=== PATIENT | male | born 1960 | race Caucasian/White ===

== ENCOUNTER 2018-11-15 22:51 | Emergency (ER) | payer MEDICARE, MEDICAID, SELFPAY ==
[2018-11-15 22:58] VITALS: BP 156/84; PULSE 88; RESP 18; TEMP 36.5; O2SAT 99
--- NOTE | 2018-11-15 22:59 | W.ED.GENAD ---
Discharge Plan Disposition Patient Disposition: HOME Condition: Good Discharge Details Chief Complaint: Allergic Clinical Impression: Angioedema of lips Primary Care Provider: Oh Sher ED Provider: Slade Spears [place] Meds and New Rx's Prescriptions: New prednisone 20 mg tablet 40 mg PO DAILY Qty: 8 RF: 0 diphenhydramine HCl 50 mg capsule 50 mg PO TID Qty: 15 RF: 0 ranitidine HCl 150 mg tablet 150 mg PO BID Qty: 10 RF: 0 Continued MOTRIN 600 MG tablet 600 mg PO PRN PRNRF: 0 NITROSTAT 0.4 MG TAB.SUBL 0.4 mg Sublingual PRN PRNRF: 0 TUMS 500 1.25 G TAB.CHEW 1.25 g PO PRN PRNRF: 0 atorvastatin [Lipitor] 40 mg Tablet 40 mg PO DAILY RF: 0 metformin 500 mg Tablet 500 mg PO HS RF: 0 atenolol 100 mg Tablet 100 mg PO BID RF: 0 aspirin [Aspir-81] 81 mg Tablet,Delayed Release (Dr/Ec) 81 mg PO DAILY RF: 0 metformin 1,000 mg Tablet 1,000 mg PO DAILY RF: 0 fluticasone propionate 50 mcg/actuation [place],Suspension 1 spray INTRANASAL DAILY RF: 0 Discontinued lisinopril 10 mg Tablet 10 mg PO DAILY RF: 0 Discharge Instructions Additional Instructions: Discontinue taking lisinopril. Fill prescriptions and take as prescribed over the next 4 days. Follow-up with primary care at the beginning of next week. Return to the ED if you develop any further or worsening swelling especially involving the tongue or throat, difficulty breathing. Referrals: Oh Sher MD [Primary Care Provider] - Discharge Data Discharge Date/Time-TO BE ENTERED AT DEPARTURE: 11/16/18 02:28 Medical Decision Making <COLBY Grant - Last Filed: 11/16/18 08:58> Patient is a 58-year-old male presenting today with chief complaint of swelling of the lips. He reports this began shortly after eating today. States that it 4 PM he ate chicken tenders and fries from [employer]. Reports shortly after this he began noting swelling of his lips. States it took about 30 minutes to reach maximal swelling. Has not taken anything for this. Has not had a reaction like this historically. Denies any shortness of breath or difficulty breathing. Has not noted any intraoral swelling or lesions. On exam, patient has findings of significant swelling to his lips consistent with angioedema. No intraoral lesions are noted. He has faint expiratory wheezes. Patient does have history of COPD and is a active smoker. Denies any difficulty breathing or shortness of breath at this time. No GI complaints. Patient has not taken anything as of yet for swelling. Patient is a fairly poor historian. Patient given Benadryl, steroids and Zantac. At the end of my shift, care transition to Dr. Spears with reassessment after medications have been able to work <Slade Spears MD - Last Filed: 11/16/18 02:19> Patient had presented with angioedema of both lips. He has associated it with finishing his dinner this afternoon. He has never had it previously. He is on lisinopril but has been for some time. He has not really had significant progression since it started but it was not getting better so he came in. He received IV steroids, Benadryl, Zantac. He has been observed for 3-1/2 hours now. His lips are definitely better although not normal. Tongue and posterior oropharynx remain normal. Vitals remain normal with no respiratory distress. Patient is safe for discharge home. We will give him prescription for prednisone, Zantac, Benadryl. Follow-up with primary care after the weekend. Discontinue lisinopril. Return to ED if worse in any way. HPI <COLBY Grant - Last Filed: 11/16/18 08:58> General Mode of arrival: ambulatory. Date/Time Provider Initiated Documentation: 11/15/18 22:58. Limitations to Documentation: no limitations. Information obtained by: patient and RN notes reviewed. History of Present Illness 58 year old M presents to the emergency department with the chief complaint of lip swelling, described as moderate, with intensity rated at 2. Quality is described as aching, and is localized to the face. Patient reports no radiation. Patient started experiencing this hour(s) (1600) and it has been constant. No relieving factors improve symptom(s), Eating worsens symptoms (came on after eating) . Patient notes denies chest pain, cough, diaphoresis, fever/chills, headaches, loss of appetite, malaise, nausea/vomiting, rash, shortness of breath, syncope and weakness. Patient did receive the following treatments prior to arrival, none Related Data Home Medications Medication Instructions Recorded Confirmed Motrin 600 mg PO PRN PRN 09/26/09 11/15/18 Nitrostat 0.4 mg SUBLINGUAL PRN PRN 09/26/09 11/15/18 Tums 500 1.25 g PO PRN PRN 09/26/09 11/15/18 aspirin [Aspir-81] 81 mg PO DAILY 11/15/18 11/15/18 atenolol 100 mg PO BID 11/15/18 11/15/18 atorvastatin [Lipitor] 40 mg PO DAILY 11/15/18 11/15/18 fluticasone propionate 1 spray INTRANASAL DAILY 11/15/18 11/15/18 metformin 1,000 mg PO DAILY 11/15/18 11/15/18 metformin 500 mg PO HS 11/15/18 11/15/18 diphenhydramine HCl 50 mg PO TID #15 cap 11/16/18 prednisone 40 mg PO DAILY #8 tab 11/16/18 ranitidine HCl 150 mg PO BID #10 tab 11/16/18 Previous Rx's Medication Instructions Recorded diphenhydramine HCl 50 mg PO TID #15 cap 11/16/18 prednisone 40 mg PO DAILY #8 tab 11/16/18 ranitidine HCl 150 mg PO BID #10 tab 11/16/18 Allergies Allergy/AdvReac Type Severity Reaction Status Date / Time fluvastatin [From Lescol] Allergy Unknown Unverified 11/15/18 23:55 lansoprazole [From Prevacid] Allergy Unknown Unverified 11/15/18 23:55 magnesium Allergy Unknown Unverified 11/15/18 23:55 niacin Allergy Unknown Unverified 11/15/18 23:55 Review of Systems <COLBY Grant - Last Filed: 11/16/18 08:58> Constitutional Reports as per HPI and Denies headache(s) Eyes Reports as per HPI, Denies eye discharge and Denies irritation ENT Reports as per HPI and Denies headache(s) Cardiovascular Reports as per HPI, Denies chest pain and Denies dyspnea Respiratory Reports as per HPI and Denies dyspnea Gastrointestinal Reports as per HPI, Denies abdominal pain, Denies change in bowel habits, Denies nausea and Denies vomiting Integumentary/Breasts Reports as per HPI and Denies rash Neurologic Reports as per HPI and Denies headache(s) PFSH <COLBY Grant - Last Filed: 11/16/18 08:58> Medical History COPD (chronic obstructive pulmonary disease) (Chronic) Coronary artery disease (Chronic) Diabetes (Chronic) High cholesterol (Chronic) Hypertension (Chronic) Surgical History History of coronary artery stent placement (Chronic) Social History Smoking/Tobacco Use Status: Current every day Tobacco Type: cigarettes Alcohol Intake: never Drug use: Never Substance use type: does not use Do you feel safe at home: Yes Do you feel safe in your relationship?: Yes Exam <COLBY Grant - Last Filed: 11/16/18 08:58> Const General: cooperative, healthy appearing, comfortable, no acute distress, well developed and well groomed Nutritional Appearance: well nourished and obese Orientation: alert and awake [facility] Head: normal to inspection, normocephalic and atraumatic Ears: hearing grossly normal bilaterally, external ears normal and TM's normal bilaterally General nose exam: external nose normal and nares normal Face and sinus: normal facial exam, sinuses nontender and face symmetric Mouth: oral mucosae normal, tongue normal, oropharynx normal, moist mucous membranes, no audible dysphonia, lip abnormal (swelling of upper and lower lip), no muffled voice, normal tongue and no trismus Teeth and gingiva: dentition normal Throat: posterior oropharynx normal, tonsils normal and uvula midline Eyes General: appearance normal, both eyes and all related structures Neck Neck: normal visual inspection, full ROM, no lymphadenopathy and no meningeal signs Resp Effort & Inspection: normal respiratory effort, able to speak in complete sentences and no respiratory distress Auscultation: clear to auscultation bilaterally, no rales, no rhonchi and no wheezes Cardio Rate: regular rate Rhythm: regular rhythm Heart Sounds: S1 normal and S2 normal GI Inspection: obesity Palpation: soft, no hepatosplenomegaly, no guarding and nontender Skin General skin exam: no rashes or lesions noted Neuro General: alert and awake Cognition: normal cognition Speech: speech normal Gait: normal gait Psych Appearance: grossly normal and well kempt Mental Status: mental status grossly normal Speech and Movement: speech and movement normal Sign Out <COLBY Grant - Last Filed: 11/16/18 08:58> Sign Out Data: Sign Out Comment: care transitioned to Dr. Spears. Patient given Benadyl, Solu-Medrol, Zantac for reaction localized to lip swelling that began at 1600. Last updated by Nicol Foley PA at 11/16/18 00:16
[2018-11-15] MEDS: methylPREDNISolone SUCC 125 MG VIAL IVP (23:35)
[2018-11-15] MEDS: diphenhydrAMINE 50 MG/ML VIAL IVP (23:36)
[2018-11-15] MEDS: Normal Saline Flush 10 ML SYR IVP (23:41)
[2018-11-15 23:46] VITALS: BP 132/79; PULSE 73; PULSE 74; RESP 25; O2SAT 95
[2018-11-16] VITALS (9 sets, daily range): BP systolic 125–153; BP diastolic 66–92; PULSE 71–74; RESP 19–27; O2SAT 94–98
--- NOTE | 2018-11-16 00:11 | ED.GENADUL_ITS ---
Discharge Plan Disposition Patient Disposition: HOME Condition: Good Discharge Details Chief Complaint: Allergic Clinical Impression: Angioedema of lips Primary Care Provider: Oh Sher ED Provider: Slade Spears [place] Meds and New Rx's Prescriptions: New prednisone 20 mg tablet 40 mg PO DAILY Qty: 8 RF: 0 diphenhydramine HCl 50 mg capsule 50 mg PO TID Qty: 15 RF: 0 ranitidine HCl 150 mg tablet 150 mg PO BID Qty: 10 RF: 0 Continued MOTRIN 600 MG tablet 600 mg PO PRN PRNRF: 0 NITROSTAT 0.4 MG TAB.SUBL 0.4 mg Sublingual PRN PRNRF: 0 TUMS 500 1.25 G TAB.CHEW 1.25 g PO PRN PRNRF: 0 atorvastatin [Lipitor] 40 mg Tablet 40 mg PO DAILY RF: 0 metformin 500 mg Tablet 500 mg PO HS RF: 0 atenolol 100 mg Tablet 100 mg PO BID RF: 0 aspirin [Aspir-81] 81 mg Tablet,Delayed Release (Dr/Ec) 81 mg PO DAILY RF: 0 metformin 1,000 mg Tablet 1,000 mg PO DAILY RF: 0 fluticasone propionate 50 mcg/actuation [place],Suspension 1 spray INTRANASAL DAILY RF: 0 Discontinued lisinopril 10 mg Tablet 10 mg PO DAILY RF: 0 Discharge Instructions Additional Instructions: Discontinue taking lisinopril. Fill prescriptions and take as prescribed over the next 4 days. Follow-up with primary care at the beginning of next week. Return to the ED if you develop any further or worsening swelling especially involving the tongue or throat, difficulty breathing. Referrals: Oh Sher MD [Primary Care Provider] - Discharge Data Discharge Date/Time-TO BE ENTERED AT DEPARTURE: 11/16/18 02:28 Medical Decision Making <COLBY Grant - Last Filed: 11/16/18 08:58> Patient is a 58-year-old male presenting today with chief complaint of swelling of the lips. He reports this began shortly after eating today. States that it 4 PM he ate chicken tenders and fries from [employer]. Reports shortly after this he began noting swelling of his lips. States it took about 30 minutes to reach maximal swelling. Has not taken anything for this. Has not had a reaction like this historically. Denies any shortness of breath or difficulty breathing. Has not noted any intraoral swelling or lesions. On exam, patient has findings of significant swelling to his lips consistent with angioedema. No intraoral lesions are noted. He has faint expiratory wheezes. Patient does have history of COPD and is a active smoker. Denies any difficulty breathing or shortness of breath at this time. No GI complaints. Patient has not taken anything as of yet for swelling. Patient is a fairly poor historian. Patient given Benadryl, steroids and Zantac. At the end of my shift, care transition to Dr. Spears with reassessment after medications have been able to work <Slade Spears MD - Last Filed: 11/16/18 02:19> Patient had presented with angioedema of both lips. He has associated it with finishing his dinner this afternoon. He has never had it previously. He is on lisinopril but has been for some time. He has not really had significant progression since it started but it was not getting better so he came in. He received IV steroids, Benadryl, Zantac. He has been observed for 3-1/2 hours now. His lips are definitely better although not normal. Tongue and posterior oropharynx remain normal. Vitals remain normal with no respiratory distress. Patient is safe for discharge home. We will give him prescription for prednisone, Zantac, Benadryl. Follow-up with primary care after the weekend. Discontinue lisinopril. Return to ED if worse in any way. HPI <COLBY Grant - Last Filed: 11/16/18 08:58> General Mode of arrival: ambulatory . Date/Time Provider Initiated Documentation: 11/15/18 22:58 . Limitations to Documentation: no limitations . Information obtained by: patient and RN notes reviewed . History of Present Illness 58 year old M presents to the emergency department with the chief complaint of lip swelling, described as moderate, with intensity rated at 2. Quality is described as aching, and is localized to the face. Patient reports no radiation. Patient started experiencing this hour(s) (1600) and it has been constant. No relieving factors improve symptom(s), Eating worsens symptoms (came on after eating) . Patient notes denies chest pain, cough, diaphoresis, fever/chills, headaches, loss of appetite, malaise, nausea/vomiting, rash, shortness of breath, syncope and weakness. Patient did receive the following treatments prior to arrival, none Related Data Home Medications Medication Instructions Recorded Confirmed Motrin 600 mg PO PRN PRN 09/26/09 11/15/18 Nitrostat 0.4 mg SUBLINGUAL PRN PRN 09/26/09 11/15/18 Tums 500 1.25 g PO PRN PRN 09/26/09 11/15/18 aspirin [Aspir-81] 81 mg PO DAILY 11/15/18 11/15/18 atenolol 100 mg PO BID 11/15/18 11/15/18 atorvastatin [Lipitor] 40 mg PO DAILY 11/15/18 11/15/18 fluticasone propionate 1 spray INTRANASAL DAILY 11/15/18 11/15/18 metformin 1,000 mg PO DAILY 11/15/18 11/15/18 metformin 500 mg PO HS 11/15/18 11/15/18 diphenhydramine HCl 50 mg PO TID #15 cap 11/16/18 prednisone 40 mg PO DAILY #8 tab 11/16/18 ranitidine HCl 150 mg PO BID #10 tab 11/16/18 Previous Rx's Medication Instructions Recorded diphenhydramine HCl 50 mg PO TID #15 cap 11/16/18 prednisone 40 mg PO DAILY #8 tab 11/16/18 ranitidine HCl 150 mg PO BID #10 tab 11/16/18 Allergies Allergy/AdvReac Type Severity Reaction Status Date / Time fluvastatin [From Lescol] Allergy Unknown Unverified 11/15/18 23:55 lansoprazole [From Prevacid] Allergy Unknown Unverified 11/15/18 23:55 magnesium Allergy Unknown Unverified 11/15/18 23:55 niacin Allergy Unknown Unverified 11/15/18 23:55 Review of Systems <COLBY Grant - Last Filed: 11/16/18 08:58> Constitutional Reports as per HPI and Denies headache(s) Eyes Reports as per HPI, Denies eye discharge and Denies irritation ENT Reports as per HPI and Denies headache(s) Cardiovascular Reports as per HPI, Denies chest pain and Denies dyspnea Respiratory Reports as per HPI and Denies dyspnea Gastrointestinal Reports as per HPI, Denies abdominal pain, Denies change in bowel habits, Denies nausea and Denies vomiting Integumentary/Breasts Reports as per HPI and Denies rash Neurologic Reports as per HPI and Denies headache(s) PFSH <COLBY Grant - Last Filed: 11/16/18 08:58> Medical History COPD (chronic obstructive pulmonary disease) (Chronic) Coronary artery disease (Chronic) Diabetes (Chronic) High cholesterol (Chronic) Hypertension (Chronic) Surgical History History of coronary artery stent placement (Chronic) Social History Smoking/Tobacco Use Status: Current every day Tobacco Type: cigarettes Alcohol Intake: never Drug use: Never Substance use type: does not use Do you feel safe at home: Yes Do you feel safe in your relationship?: Yes Exam <COLBY Grant - Last Filed: 11/16/18 08:58> Const General: cooperative, healthy appearing, comfortable, no acute distress, well developed and well groomed Nutritional Appearance: well nourished and obese Orientation: alert and awake [facility] Head: normal to inspection, normocephalic and atraumatic Ears: hearing grossly normal bilaterally, external ears normal and TM's normal bilaterally General nose exam: external nose normal and nares normal Face and sinus: normal facial exam, sinuses nontender and face symmetric Mouth: oral mucosae normal, tongue normal, oropharynx normal, moist mucous membranes, no audible dysphonia, lip abnormal (swelling of upper and lower lip), no muffled voice, normal tongue and no trismus Teeth and gingiva: dentition normal Throat: posterior oropharynx normal, tonsils normal and uvula midline Eyes General: appearance normal, both eyes and all related structures Neck Neck: normal visual inspection, full ROM, no lymphadenopathy and no meningeal signs Resp Effort & Inspection: normal respiratory effort, able to speak in complete sentences and no respiratory distress Auscultation: clear to auscultation bilaterally, no rales, no rhonchi and no wheezes Cardio Rate: regular rate Rhythm: regular rhythm Heart Sounds: S1 normal and S2 normal GI Inspection: obesity Palpation: soft, no hepatosplenomegaly, no guarding and nontender Skin General skin exam: no rashes or lesions noted Neuro General: alert and awake Cognition: normal cognition Speech: speech normal Gait: normal gait Psych Appearance: grossly normal and well kempt Mental Status: mental status grossly normal Speech and Movement: speech and movement normal Sign Out <COLBY Grant - Last Filed: 11/16/18 08:58> Sign Out Data: Sign Out Comment: care transitioned to Dr. Spears. Patient given Benadyl, Solu-M edrol, Zantac for reaction localized to lip swelling that began at 1600. Last updated by Nicol Foley PA at 11/16/18 00:16
== END 2018-11-16 02:28 | disposition home or self-care (01) ==
PROVIDERS: Emergency Provider Emergency Medicine; PCP Internal Medicine
DX: T78.3XXA Angioneurotic edema, initial encounter (principal); L53.9 Erythematous condition, unspecified; R20.2 Paresthesia of skin; T46.4X5A Adverse effect of angiotensin-converting-enzyme inhibitors, initial encounter; I10 Essential (primary) hypertension; J44.9 Chronic obstructive pulmonary disease, unspecified; F17.210 Nicotine dependence, cigarettes, uncomplicated; E11.9 Type 2 diabetes mellitus without complications; Z79.84 Long term (current) use of oral hypoglycemic drugs
CPT/HCPCS: 36415; 96365; 96375; 99284; J1200; J2930

== ENCOUNTER 2019-03-26 13:35 | Outpatient (REF) | payer MEDICARE, MEDICAID, SELFPAY ==
[2019-03-26 20:56] LABS: Anion Gap 9.9 mmol/L (3-11); BUN 14 mg/dL (7-18); CO2 26.1 mmol/L (21.0-32.0); CREATININE 0.89 mg/dL (0.70-1.30); Calcium 10.3 mg/dL (8.5-10.1); Chloride 103 mmol/L (98-107); Glucose 130 mg/dL (70-100); Potassium 4.9 mmol/L (3.5-5.1); Sodium 139 mmol/L (136-145)
== END 2019-03-26 13:55 ==
LOC: NCHCO 13:35
PROVIDERS: PCP Internal Medicine; Visit Provider Internal Medicine
DX: I10 Essential (primary) hypertension (principal)
CPT/HCPCS: 80048

== ENCOUNTER 2019-06-25 12:57 | Outpatient (REF) | payer MEDICARE, MEDICAID, SELFPAY ==
[2019-06-25 21:24] LABS: Anion Gap 10.2 mmol/L (3-11); BUN 17 mg/dL (7-18); CO2 24.8 mmol/L (21.0-32.0); CREATININE 0.94 mg/dL (0.70-1.30); Calcium 10.1 mg/dL (8.5-10.1); Chloride 104 mmol/L (98-107); Glucose 152 mg/dL (74-106); Magnesium 1.8 mg/dL (1.8-2.4); Potassium 4.6 mmol/L (3.5-5.1); Sodium 139 mmol/L (136-145)
== END 2019-06-25 13:17 ==
LOC: NCHCN 12:57
PROVIDERS: PCP Internal Medicine; Visit Provider Internal Medicine
DX: R25.2 Cramp and spasm (principal)
CPT/HCPCS: 80048; 83735

== ENCOUNTER 2020-04-24 12:55 | Outpatient (REF) | payer MEDICARE, MEDICAID, SELFPAY ==
[2020-04-24 21:27] LABS: Abs Immature Grans 0.08 10^3/uL (0.0-0.06); Absolute Basophil Count 0.06 10^3/uL (0.0-0.2); Absolute Eosinophil Count 0.16 10^3/uL (0.0-0.7); Absolute Lymphocyte Count 2.89 10^3/uL (1.2-3.4); Absolute Monocyte Count 0.63 10^3/uL (0.1-0.8); Absolute Neutrophil Count 6.44 10^3/uL (1.2-6.7); Basophils % 0.6; Eosinophils % 1.6; HCT 53.1 % (40.0-50.0); HGB 17.2 g/dL (13.5-17.5); Immature Grans % 0.8; Lymphocytes % 28.2; MCH 29.8 pg (27.0-33.0); MCHC 32.4 % (32.0-36.0); MPV 10.8 fL (8.0-11.0); Monocytes % 6.1; Neutrophils % 62.7; Nucleated RBC 0 %; Platelet Count 211 10^3/uL (130-400); RBC 5.77 10^6/uL (4.36-5.78); RDW 12.7 % (11.8-14.1); RDW-SD 42.9 fL; WBC 10.26 10^3/uL (4.4-10.8)
[2020-04-24 22:19] LABS: Calcium 10.3 mg/dL (8.5-10.1)
[2020-04-24 22:20] LABS: ALT 39 U/L (16-63); AST 16 U/L (15-37); Albumin 3.8 g/dL (3.4-5.0); Alkaline Phosphatase 174 U/L (46-116); Anion Gap 9.4 mmol/L (3-11); BUN 20 mg/dL (7-18); Bilirubin, Total 0.4 mg/dL (0.2-1.0); CO2 23.6 mmol/L (21.0-32.0); CREATININE 0.98 mg/dL (0.70-1.30); Chloride 108 mmol/L (98-107); Glucose 112 mg/dL (74-106); Potassium 4.3 mmol/L (3.5-5.1); Sodium 141 mmol/L (136-145); TSH 1.87 uIU/mL (0.36-3.74); Total Protein 6.9 g/dL (6.4-8.2)
[2020-04-24 22:32] LABS: LDH 149 U/L (85-227)
== END 2020-04-24 13:15 ==
LOC: NCHCN 12:55
PROVIDERS: PCP Internal Medicine; Visit Provider Internal Medicine
DX: R63.4 Abnormal weight loss (principal); R61 Generalized hyperhidrosis; R23.2 Flushing
CPT/HCPCS: 80053; 83615; 84443; 85025

== ENCOUNTER 2020-08-22 14:03 | Outpatient (REF) | payer MEDICARE, MEDICAID, SELFPAY ==
[2020-08-22 20:41] LABS: Anion Gap 11.9 mmol/L (3-11); BUN 17 mg/dL (7-18); CO2 23.1 mmol/L (21.0-32.0); CREATININE 0.9 mg/dL (0.70-1.30); Calcium 10.6 mg/dL (8.5-10.1); Chloride 108 mmol/L (98-107); Glucose 123 mg/dL (74-106); Potassium 4.6 mmol/L (3.5-5.1); Sodium 143 mmol/L (136-145)
[2020-08-25 11:27] LABS: Parathyroid Hormone,Intact 102 pg/mL (19-88)
== END 2020-08-22 14:04 | disposition home or self-care (01) ==
LOC: NCHCN 14:03
PROVIDERS: PCP Internal Medicine; Visit Provider Internal Medicine
DX: I10 Essential (primary) hypertension (principal); Z72.0 Tobacco use; I25.10 Atherosclerotic heart disease of native coronary artery without angina pectoris; G47.33 Obstructive sleep apnea (adult) (pediatric); E83.52 Hypercalcemia; E11.9 Type 2 diabetes mellitus without complications
CPT/HCPCS: 80048; 83735; 83970

== ENCOUNTER 2020-08-28 18:29 | Outpatient (REF) | payer MEDICARE, MEDICAID, SELFPAY ==
[2020-08-28 21:54] LABS: Total Volume 1960 ml
[2020-08-28 21:58] LABS: Creatinine,24hr Ur 1.12 g/24hr (0.95-2.49); Creatinine,Urine 58.81 mg/dL
[2020-08-30 12:23] LABS: Calcium Urine 20.9 mg/dL (See Note); Calcium Urine 24 hr 410 mg/24hrs (100-300); Timed Urine Volume 1960 mL
== END 2020-08-28 18:30 | disposition home or self-care (01) ==
LOC: NCHCN 18:29
PROVIDERS: PCP Internal Medicine; Visit Provider Internal Medicine
DX: E83.52 Hypercalcemia (principal)
CPT/HCPCS: 81050; 82340; 82570

== ENCOUNTER 2020-12-26 12:55 | Outpatient (REF) | payer MEDICARE, MEDICAID, SELFPAY ==
[2020-12-26 19:33] LABS: Anion Gap 16.3 mmol/L (3-11); BUN 14 mg/dL (7-18); CO2 19.7 mmol/L (21.0-32.0); CREATININE 0.9 mg/dL (0.70-1.30); Calculated LDL 56 mg/dL (<100); Chloride 105 mmol/L (98-107); Cholesterol 136 mg/dL (<200); Glucose 109 mg/dL (74-106); HDL Cholesterol 45 mg/dL (40-60); Potassium 4.5 mmol/L (3.5-5.1); Sodium 141 mmol/L (136-145); Triglyceride 179 mg/dL (<150)
[2020-12-29 12:48] LABS: PSA, Screening 0.4 ng/mL (0.0-4.5)
[2020-12-29 15:52] LABS: Albumin 58.9 % (55.8-66.1); Total Protein 6.7 g/dL (6.3-8.2)
== END 2020-12-26 12:56 | disposition home or self-care (01) ==
LOC: NCHCN 12:55
PROVIDERS: PCP Internal Medicine; Visit Provider Internal Medicine
DX: E11.9 Type 2 diabetes mellitus without complications (principal); E21.0 Primary hyperparathyroidism; I10 Essential (primary) hypertension; E66.9 Obesity, unspecified; G47.33 Obstructive sleep apnea (adult) (pediatric); R25.2 Cramp and spasm
CPT/HCPCS: 80048; 80061; 84153; 84165

== ENCOUNTER 2020-12-29 09:44 | Outpatient (REF) | payer MEDICARE, MEDICAID, SELFPAY ==
[2020-12-29 17:49] LABS: TSH 3.19 uIU/mL (0.36-3.74)
[2020-12-29 18:05] LABS: Vitamin D 25 Total 21.7 ng/mL (30-100)
[2020-12-31 08:57] LABS: Parathyroid Hormone,Intact 73 pg/mL (19-88)
[2021-01-05 17:38] LABS: 1,25-Dihydroxyvitamin D 33 pg/mL (18-64)
== END 2020-12-29 09:45 | disposition home or self-care (01) ==
LOC: NCHCN 09:44
PROVIDERS: PCP Internal Medicine; Visit Provider Internal Medicine
DX: E83.52 Hypercalcemia (principal); E21.0 Primary hyperparathyroidism
CPT/HCPCS: 82306; 82397; 82652; 83970; 84443

== ENCOUNTER 2021-01-05 01:23 | Outpatient (CLI) | payer MEDICARE, MEDICAID, SELFPAY ==
--- NOTE | 2021-01-05 | DI.CT_ITS ---
Exam(s) CT CHEST/ABD/PEL W EXAM: CT CHEST/ABD/PEL W CLINICAL HISTORY: UNINTENTIONAL WT LOSS,R63.4,HYPERCALCEMIA,E83.52. TECHNIQUE: Imaging Protocol: Axial computed tomography images with coronal and sagittal reformatted images were created and reviewed CONTRAST MATERIAL: Intravenous: Omnipaque 350 Contrast volume:100 ml Oral: None COMPARISON: CT RENAL COLIC WO CONTRAST from 09/26/2009 FINDINGS: CHEST: LUNGS: No new infiltrates nor pleural effusions nor ominous pulmonary nodules. Mild benign-appearing pleural thickening over the posterior basal segment of the left lower lobe is unchanged from 2010. MEDIASTINUM: There is no hilar nor mediastinal adenopathy. Visualized thyroid unremarkable.No axillar y adenopathy. No supraclavicular adenopathy. CARDIAC: Heart size is normal. There is no pericardial effusion.Caliber of the thoracic aorta is wit hin normal limits. OSSEOUS: No significant osseous lesions.. ABDOMEN: There is no ascites. LIVER: Mild hepatic steatosis is noted. Liver size is normal. There are no discrete focal hepatic l esions. No dilatation of intrahepatic ducts. GALLBLADDER/BILIARY: No obvious gallbladder pathology. CBD is not dilated. PANCREAS: No evidence of pancreatic mass nor dilatation of the pancreatic duct. SPLEEN: Spleen is not enlarged. There are no intrasplenic lesions. Splenic and portal veins are reyes nt. ADRENALS: There are no significant adrenal masses. KIDNEYS: Right kidney appears unremarkable.. There is a small exophytic cyst off the lateral cortex of the left kidney which measures 10 x 9 millimeters. No solid renal masses. No calculi. No hydron ephrosis. ABDOMINAL AORTA: Abdominal aorta is not enlarged. LYMPH NODES: There is no retroperitoneal nor paraaortic adenopathy. No significant mesenteric adenop athy evident. ABDOMINAL WALL: No evidence of significant anterior abdominal wall hernia. There is a fat containing inguinal hernia. Does not contain bowel loops. GI: There is no evidence of bowel obstruction.No free air. No abscess. PELVIS: LYMPH NODES: There is no intrapelvic nor inguinal adenopathy. GI: The appendix is not seen is a separate structure. There is no evidence of acute appendicitis.The re is abnormal thickening of the sigmoid over a distance of 7 cm. Thickening is relatively circumfer ential. There are adjacent diverticuli. Either related to diverticulitis although neoplasm is also consideration the lower sigmoid here. URINARY BLADDER: No calculi nor masses evident REPRODUCTIVE: Prostate not enlarged. OSSEOUS: No significant osseous lesions. IMPRESSION: 1. Main finding here is in the sigmoid where there is significant wall thickening over a distance of 7 cm. Although there are diverticuli in this region, possibly that this represents neoplasm is a sig nificant consideration. Colonoscopy is recommended. There is no obvious regional adenopathy. There is no ascites. 2. No focal hepatic lesions no other significant findings in the abdomen pelvis with the exception of a small 9 millimeter cyst in the lateral cortex of the left kidney, partially exophytic. 3. 4. RADIATION DOSE DELIVERED: 1,633.39mGy.cm Total DLP DATA REPOSITORY: All CT scans at this facility are submitted to the National Radiology Data Registry (NRDR) Dose Index Registry (DIR) with the [employer] (ACR). RADIATION OPTIMIZATION: All CT scans at this facility use at least one of these dose optimization te chniques: automated exposure control; mA and/or kV adjustment per patient size (includes targeted exa ms where dose is matched to clinical indication); or iterative reconstruction.
[2021-01-05] MEDS: Normal Saline - Diluent 50 ML VIAL IV (15:28)
[2021-01-05] MEDS: Omnipaque 350 MG/ML 100 ML BTL IJ (15:28)
== END 2021-01-05 01:43 ==
PROVIDERS: PCP Internal Medicine; Visit Provider Internal Medicine
DX: R63.4 Abnormal weight loss (principal); E83.52 Hypercalcemia; K57.32 Diverticulitis of large intestine without perforation or abscess without bleeding; N28.1 Cyst of kidney, acquired
CPT/HCPCS: 74177; 71260; J3490

== ENCOUNTER → 2021-02-10 11:00 | Outpatient (BNVA) | payer MEDICARE, MEDICAID, SELFPAY | PROVIDERS: PCP Internal Medicine; Referring Provider Internal Medicine; Visit Provider Surgery | DX: R63.4 Abnormal weight loss (principal); G47.33 Obstructive sleep apnea (adult) (pediatric); K21.9 Gastro-esophageal reflux disease without esophagitis; R19.4 Change in bowel habit | CPT/HCPCS: 99203; 99214 ==

== ENCOUNTER 2021-02-13 02:42 | Outpatient (CLI) | payer MEDICARE, MEDICAID, SELFPAY ==
[2021-02-13 11:52] LABS: Source Nasal/Nares
[2021-02-13 19:12] LABS: COVID-19 PCR Negative (Negative)
== END 2021-02-13 02:43 | disposition home or self-care (01) ==
LOC: LBO 02:42
PROVIDERS: PCP Internal Medicine; Visit Provider Surgery
DX: Z20.822 Contact with and (suspected) exposure to COVID-19 (principal)
CPT/HCPCS: 87635

== ENCOUNTER 2021-02-16 10:29 | Day surgery (SDC) | payer MEDICARE, MEDICAID, SELFPAY ==
--- NOTE | 2021-02-16 07:00 | W.COLOREPORT ---
Date of service: 02/16/21 Time of Service: 13:14 Colonoscopy Report Date of procedure: 02/16/21 Pre-op diagnosis general: Colon Cancer screening Post-op diagnosis procedure note: other (polyps and diverticulosis) Procedure: Colonoscopy with polypectomy Surgeon: Pooja Bedoya Anesthesia Type: General:No Airway (ASA 3/ Jean-Paul Marc CRNA) Estimated blood loss (mL): 3 Pathology: other (Cecal polyp x2, Ascending polyp, transverse polyp, descending polyp x4, sigmoid polyp) Complications: None Disposition: same day Indications: Mr. Gomez is a pleasant 60-year-old gentleman who is here today to discuss his first screening colonoscopy. He denies any melena or hematochezia. He has had some intermittent constipation and decrease in volume of stool. Looking at the chart today he is also had a 65 pound weight loss over 2 years. He denies having changed his diet. We discussed colonoscopy in detail as well as the preparation for that. I reviewed with him the requirement of Covid testing given no he is vaccinated. I asked him not to travel or go to large gatherings between the time he is tested in his colonoscopy. Risks, benefits and complications have been reviewed. Complications include but are not limited to bleeding, pain, perforation, missed small lesion/polyp, sore throat, aspiration and adverse reaction to the medications. Questions were entertained and answered to their satisfaction and they wished to proceed. No guarantees were given or implied. Colonoscopy under sedation Prep: Miralax/Dulcolax Procedure Start Time: 13:04 Procedure End Time: 13:44 Retraction Time: 30 minutes Findings: 9 polyps mild diverticulosis Procedure Description: After informed consent was obtained the patient was taken to the procedure room and placed in a left decubitous position. Monitors were applied and a time out was done. The patients name, date of , procedure, allergies to medications and metal in their body was reviewed. The patient was then sedated. Once sedated and comfortable a rectal exam was done. External exam was normal. Internal exam revealed a normal sphincter tone and no palpable masses. The prostate felt smooth. The scope was then introduced and retro-flexed. No internal hemorrhoids, polyps or masses were identified on retro-flexion. The scope was then advanced to the cecum without difficulty. The ileocecal vlave and appendiceal orifice were identified. The prep was suboptimal. The scope was then slowly retracted over 30 minutes back into the rectum. 1 Liter was used to clean the mucosa as much as possible. Polyps were removed with cold forceps in the cecum x2, ascending colon x1, transverse colon x1,descending colon x3 and sigmoid colon x1; and with a snare in the descending colon x1. There was mild diverticulosis noted in the descending and sigmoid colon. The scope was removed and the patient was woken up and taken back to Same day surgery in stable condition. The patient tolerated the procedure well and there were no immediate complications. Follow up: The patient should follow up in 3-5 years unless they develop changes in bowel habits or other new gastrointestinal complaints.
--- NOTE | 2021-02-16 07:00 | W.PM.DSUDISC ---
Discharge Plan Disposition Patient Disposition: HOME Condition: Good Discharge Details Reason For Visit: Colonoscopy Attending Provider: Pooja Bedoya Primary Care Provider: Oh Sher Home Meds and New Rx's Prescriptions: Continued MOTRIN 600 MG tablet 600 mg PO PRN PRNRF: 0 NITROSTAT 0.4 MG TAB.SUBL 0.4 mg Sublingual PRN PRNRF: 0 TUMS 500 1.25 G TAB.CHEW 1.25 g PO PRN PRNRF: 0 Jardiance 10 mg tablet 10 mg PO DAILY RF: 0 atorvastatin [Lipitor] 40 mg Tablet 40 mg PO DAILY RF: 0 metformin 500 mg Tablet 500 mg PO HS RF: 0 atenolol 100 mg Tablet 100 mg PO BID RF: 0 aspirin [Aspir-81] 81 mg Tablet,Delayed Release (Dr/Ec) 81 mg PO DAILY RF: 0 fluticasone propionate 50 mcg/actuation [place],Suspension 1 spray INTRANASAL DAILY RF: 0 diphenhydramine HCl 50 mg capsule 50 mg PO TID Qty: 15 RF: 0 metformin 1,000 mg tablet 1,000 mg PO BID RF: 0 Discharge Instructions Instructions: Diverticulosis (DC), Colorectal Polyps (DC) Additional Instructions: Findings: multiple polyps diverticulosis Follow up: 3-5 years Please call if you develop: fevers >101.5 Nausea or Vomiting Abdominal pain that is not transient Rectal bleeding that is more then a tbsp A hard abdomen and inability to pass gas DAY SURGERY UNIT POST ENDOSCOPY INSTRUCTIONS Instructions for everyone who is given Anesthesia: For your safety, please do the following for the next 24 Hours: a. Do not drive or operate dangerous equipment b. Do not drink alcohol beverages or use any recreational drugs for the first 24 hours or while taking pain medications. The medications in your body may have a reaction that can be dangerous. c. Do not make any important decisions or sign any important papers 1. Generally there are no restrictions on your activity after a day or so has gone by, but you may feel a bit fatigued for a few days. 2. After you arrive home you may have a light meal and return to a normal diet as you can tolerate it without feeling sick to your stomach. 3. After surgery, you may feel pain or discomfort. This should be only transient, but if it persists please contact your doctor. 4. If there are any questions regarding the findings of your procedure, please feel free to contact your doctor. 6. If you are unable to contact your doctor with a problem, contact the hospital at [phone]. 7. Continue all your regular medications unless directed otherwise. I understand the above instructions and have no questions. Signature of Patient or Responsible Adult Escort Date/Time Name of Responsible Adult Escort Signature of Nurse Date/Time Activity:: Activity as Tolerated Diet:: high fiber diet Discharge Orders Discharge Orders: Discharge Order (Routine); Ordered 02/16/21 Ordered By: Pooja Bedoya
[2021-02-16 10:41] VITALS: BP 145/83; PULSE 68; RESP 18; TEMP 36.5; O2SAT 95
[2021-02-16] MEDS: Lactated Ringers 1,000 ML 80 ML IV (11:06)
--- NOTE | 2021-02-16 11:16 | ANES.PREOP_ITS ---
General Info Date of Service Date Performed: 02/16/21 Height: 5 ft 9 in Weight: 108.4 kg Body Mass Index (BMI): 35.2 Surgical Procedure: Operation Date: 02/16/21 12:35 Proposed Procedures Side Surgeon p Colonoscopy Pooja Bedoya MD Meds Allergies and Home Medications Allergies Allergy/AdvReac Type Severity Reaction Status Date / Time fluvastatin [From Lescol] Allergy Unknown Verified 02/16/21 10:46 lansoprazole [From Prevacid] Allergy Unknown Verified 02/16/21 10:46 lisinopril Allergy Unknown unknown Verified 02/16/21 10:46 magnesium Allergy Unknown Verified 02/16/21 10:46 niacin Allergy Unknown Verified 02/16/21 10:46 Home Medication Medication Instructions Recorded Motrin 600 mg PO PRN PRN 09/26/09 Nitrostat 0.4 mg SUBLINGUAL PRN PRN 09/26/09 Tums 500 1.25 g PO PRN PRN 09/26/09 aspirin [Aspir-81] 81 mg PO DAILY 11/15/18 atenolol 100 mg PO BID 11/15/18 atorvastatin [Lipitor] 40 mg PO DAILY 11/15/18 fluticasone propionate 1 spray INTRANASAL DAILY 11/15/18 metformin 500 mg PO HS 11/15/18 diphenhydramine HCl 50 mg PO TID #15 cap 11/16/18 empagliflozin 10 mg tablet 10 mg PO DAILY 02/03/21 metformin 1,000 mg tablet 1,000 mg PO BID tab 02/10/21 Current Visit Medications: Current Medications Generic Name Dose Route Start Last Admin Trade Name Freq PRN Reason Stop Dose Admin Hyoscyamine Sulfate 0.125 mg 02/16/21 07:01 Hyoscyamine 0.125 Mg Sl/Oral/Chew SL DIRECTED PRN Ringer's Solution 1,000 mls @ 80 mls/hr 02/16/21 06:00 02/16/21 11:06 IV 03/15/21 23:59 80 mls/hr INFUSION FREDI Administration IV Miscellaneous Supplies 1 each 02/16/21 06:00 Iv Access IV 03/15/21 23:59 DIRECTED FREDI Ondansetron HCl 4 mg 02/16/21 07:01 Ondansetron 4 Mg/2 Ml Vial IVP Q4H PRN PRN Nausea / Vomiting Sodium Chloride 0 ml 02/16/21 06:00 Normal Saline Flush 10 Ml Syr IV 03/15/21 23:59 PRN PRN Sodium Chloride 0 ml 02/16/21 06:00 Normal Saline 10 Ml Vial IJ 03/15/21 23:59 DIRECTED PRN Sterile Water 0 ml 02/16/21 06:00 Water,Injection,Sterile 10 Ml Vial IJ 03/15/21 23:59 DIRECTED PRN PFSH Active Problems Active Problems: Problem Status Onset Code Unintentional weight loss R63.4 Hyperparathyroidism E21.3 Smoker F17.200 Obesity E66.9 Sleep apnea G47.30 Fibromyalgia M79.7 GERD (gastroesophageal reflux disease) K21.9 Medical History Medical History COPD (chronic obstructive pulmonary disease) Coronary artery disease per pt. states he doesn't have to f/u with anybody Diabetes Fibromyalgia GERD (gastroesophageal reflux disease) High cholesterol Hyperparathyroidism Hypertension Non Q wave myocardial infarction 04/23/1998: [place] [facility] [place]. Obesity Sleep apnea Smoker Surgical History Surgical History History of coronary artery stent [place] [facility] [place] Tobacco Smoking/Tobacco Use Status: Current every day Tobacco Type: cigarettes Alcohol Alcohol Intake: never Substance Use Substance use: Never Substance use type: does not use Vital Signs and Lab Results Vital Signs Most Recent Vital Signs in EMR: Most Recent Vital Signs Temp Pulse Resp BP Pulse Ox 36.5 C 68 18 145/83 H 95 02/16/21 10:41 02/16/21 10:41 02/16/21 10:41 02/16/21 10:41 02/16/21 10:41 Point of Care Results Point of Care Results: Finger Stick Blood Glucose 129 02/16/21 11:04 Lab Results Blood Type / Crossmatch: No Data to Display Complete Blood Count: No Data to Display Complete Metabolic Panel: No Data to Display Liver Function Panel: No Data to Display Coagulation Panel: No Data to Display Cardiac Panel: No Data to Display Arterial Blood Gas: No Data to Display Venous Blood Gas: No Data to Display Pancreas Panel: No Data to Display Thyroid Panel: No Data to Display Infectious Disease: Coronavirus (COVID-19)(PCR) Negative (Negative) 02/13/21 09:11 02/13/21 Coronavirus 2019 Source Nasal/Nares 02/13/21 09:11 02/13/21 Blood Cultures: No Data to Display Toxicology Panel: No Data to Display Anesthesia Assessment and Plan Anesthesia History Personal History: No History of General Anesthesia Family History: No Family History of Anesthesia Complications Exercise Tolerance Exercise Tolerance: Metabolic Equivalents>4 Pertinent Negatives Pertinent Negatives: No Symptoms of GERD Cardiac & Pulmonary Exam Cardiac Exam: Normal S1/S2 Heart Sounds Pulmonary Exam: Clear Bilateral Breath Sounds Airway Exam Known Difficult Airway: No Mallampati Class: 2 Mouth Opening: Normal (> 3cm) Thyromental Distance: Greater than 3 cm Facial Hair: Full [place] Neck Range of Motion: Full ROM Neck Circumference: Normal Teeth Condition: Normal Dentition (Missing front upper) ASA Classification ASA Score: ASA 3 Emergency Case?: No NPO Status NPO Status: NPO Clears >2 hours, Solids >8 hours Anesthesia Plan Resuscitation Status: Full Code Anesthesia Technique: General Anesthesia Airway Planned: Natural Airway Monitors Used: Standard Monitors
--- NOTE | 2021-02-16 11:39 | ANES.CON_ITS ---
General Date of Service Date of Service: 02/16/21 Reason for Consult Requesting Provider: Jean-Paul Marc How Consult Conducted:: Seen in Office Reason for Consult:: Accidental creation, should have been a preop note Consult Recommendation after Review:: N/A Height: 5 ft 9 in Weight: 108.4 kg Body Mass Index (BMI): 35.2 Meds Allergies and Home Medications Allergies Allergy/AdvReac Type Severity Reaction Status Date / Time fluvastatin [From Lescol] Allergy Unknown Verified 02/16/21 10:46 lansoprazole [From Prevacid] Allergy Unknown Verified 02/16/21 10:46 lisinopril Allergy Unknown unknown Verified 02/16/21 10:46 magnesium Allergy Unknown Verified 02/16/21 10:46 niacin Allergy Unknown Verified 02/16/21 10:46 Home Medication Medication Instructions Recorded Motrin 600 mg PO PRN PRN 09/26/09 Nitrostat 0.4 mg SUBLINGUAL PRN PRN 09/26/09 Tums 500 1.25 g PO PRN PRN 09/26/09 aspirin [Aspir-81] 81 mg PO DAILY 11/15/18 atenolol 100 mg PO BID 11/15/18 atorvastatin [Lipitor] 40 mg PO DAILY 11/15/18 fluticasone propionate 1 spray INTRANASAL DAILY 11/15/18 metformin 500 mg PO HS 11/15/18 diphenhydramine HCl 50 mg PO TID #15 cap 11/16/18 empagliflozin 10 mg tablet 10 mg PO DAILY 02/03/21 metformin 1,000 mg tablet 1,000 mg PO BID tab 02/10/21 Current Visit Medications: Current Medications Generic Name Dose Route Start Last Admin Trade Name Freq PRN Reason Stop Dose Admin Hyoscyamine Sulfate 0.125 mg 02/16/21 07:01 Hyoscyamine 0.125 Mg Sl/Oral/Chew SL DIRECTED PRN Ringer's Solution 1,000 mls @ 80 mls/hr 02/16/21 06:00 02/16/21 11:06 IV 03/15/21 23:59 80 mls/hr INFUSION FREDI Administration IV Miscellaneous Supplies 1 each 02/16/21 06:00 Iv Access IV 03/15/21 23:59 DIRECTED FREDI Ondansetron HCl 4 mg 02/16/21 07:01 Ondansetron 4 Mg/2 Ml Vial IVP Q4H PRN PRN Nausea / Vomiting Sodium Chloride 0 ml 02/16/21 06:00 Normal Saline Flush 10 Ml Syr IV 03/15/21 23:59 PRN PRN Sodium Chloride 0 ml 02/16/21 06:00 Normal Saline 10 Ml Vial IJ 03/15/21 23:59 DIRECTED PRN Sterile Water 0 ml 02/16/21 06:00 Water,Injection,Sterile 10 Ml Vial IJ 03/15/21 23:59 DIRECTED PRN PFSH Active Problems Active Problems: Problem Status Onset Code Unintentional weight loss R63.4 Hyperparathyroidism E21.3 Smoker F17.200 Obesity E66.9 Sleep apnea G47.30 Fibromyalgia M79.7 GERD (gastroesophageal reflux disease) K21.9 Medical History Medical History COPD (chronic obstructive pulmonary disease) Coronary artery disease per pt. 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 Obesity Sleep apnea Smoker Surgical History Surgical History History of coronary artery stent [place] [facility] [place] Tobacco Smoking/Tobacco Use Status: Current every day Tobacco Type: cigarettes Alcohol Alcohol Intake: never Substance Use Substance use: Never Substance use type: does not use Vital Signs & Lab Results Vital Signs Most Recent Vital Signs: Most Recent Vital Signs Temp Pulse Resp BP Pulse Ox 36.5 C 68 18 145/83 H 95 02/16/21 10:41 02/16/21 10:41 02/16/21 10:41 02/16/21 10:41 02/16/21 10:41 Point of Care Results Nursing Point of Care Results: Finger Stick Blood Glucose 129 H (70 - 120) 02/16/21 11:04 02/16/21 Lab Results Blood Type / Crossmatch: No Data to Display Complete Blood Count: No Data to Display Complete Metabolic Panel: No Data to Display Liver Function Panel: No Data to Display Coagulation Panel: No Data to Display Cardiac Panel: No Data to Display Arterial Blood Gas: No Data to Display Venous Blood Gas: No Data to Display Pancreas Panel: No Data to Display Thyroid Panel: No Data to Display Infectious Disease: Coronavirus (COVID-19)(PCR) Negative (Negative) 02/13/21 09:11 02/13/21 Coronavirus 2019 Source Nasal/Nares 02/13/21 09:11 02/13/21 Blood Cultures: No Data to Display Toxicology Panel: No Data to Display Imaging and Studies Imaging and Studies Cardiac Catheterization Summary: 04/28/98: One Vessel Disease (LCX). Angioplasty and stent placed in OM3 lesion. Anesthesia Assessment and Plan Anesthesia History Personal History: No History of General Anesthesia Family History: No Family History of Anesthesia Complications Airway Exam Known Difficult Airway: No Mallampati Class: 2 Mouth Opening: Normal (> 3cm) Thyromental Distance: Greater than 3 cm Neck Range of Motion: Full ROM Neck Circumference: Normal Teeth Condition: Normal Dentition (Missing front upper)
[2021-02-16 11:55] VITALS: BMI 35.2
[2021-02-16 11:57] VITALS: BMI 35.2
--- NOTE | 2021-02-16 13:17 | BOWEL_PTH ---
PATIENT: Brennon Gomez LOC: [facility] U#:[id number] AGE/SX: 60/M ROOM: RE02/16/[address]: Pooja Bedoya MD : 1960 BED: DIS: 02/16/2021 SPEC #: [id number] RECD: 02/16/21 18:17 STATUS: ANDER REMeli #: [id number] ANEESH: 02/16/21 13:[address]: Pooja Bedoya DEPT: Surgical Specimen RECD BY: Alta Martinez ENTERED: 02/16/21 18:19 SP TYPE: Bowel OTHR DR: Oh Sher Tissues: 1 - BIOPSY BOWEL 2 - BIOPSY BOWEL 3 - BIOPSY BOWEL 4 - BIOPSY BOWEL 5 - BIOPSY BOWEL Procedures: GROSS AND MICRO LEVEL 4 Comments: [id number]
[2021-02-16 13:58] VITALS: BP 106/56; PULSE 57; RESP 14; TEMP 36.4; O2SAT 96
--- NOTE | 2021-02-16 14:17 | W.ANESPOSTOP ---
Postoperative Evaluation Date, Time and Location Date Performed: 02/16/21 Time Performed: 14:18 Patient Location: Day Surgery Unit Vital Signs Most Recent Imported Vital Signs: Most Recent Vital Signs Temp Pulse Resp BP Pulse Ox 36.4 C L 57 L 14 106/56 L 96 02/16/21 13:58 02/16/21 13:58 02/16/21 13:58 02/16/21 13:58 02/16/21 13:58 Pain Score Most Recent Pain Score: Most Recent Pain Score Pain Level 0 02/16/21 13:58 Assessment Mental Status: Awake (Alert & Oriented to Patient Baseline) Airway and Respiratory Function: Patent airway with normal (patient baseline) respiratory exam Cardiovascular Function: Hemodynamically Stable Hydration Status: Adequately Hydrated Nausea & Vomiting: No Nausea or Vomiting Pain: Pt. Denies Any Pain Peripheral Nerve Block: Patient did not receive a nerve block
[2021-02-16 14:25] VITALS: BP 128/72; PULSE 57; RESP 16; TEMP 36.4; O2SAT 98
== END 2021-02-16 14:50 | disposition home or self-care (01) ==
LOC: SUR 10:30
PROVIDERS: PCP Internal Medicine; Visit Provider Surgery
PROC: 0DJD8ZZ Inspection of Lower Intestinal Tract, Via Natural or Artificial Opening Endoscopic (ICD-10-PCS; CPT 45378; principal; 2021-02-16 12:30)
DX: Z12.11 Encounter for screening for malignant neoplasm of colon (principal); D12.0 Benign neoplasm of cecum; K57.30 Diverticulosis of large intestine without perforation or abscess without bleeding; D12.3 Benign neoplasm of transverse colon; D12.4 Benign neoplasm of descending colon; D12.5 Benign neoplasm of sigmoid colon
CPT/HCPCS: 45385; 45380; 88305; J2704

== ENCOUNTER 2021-03-31 16:05 | Outpatient (REF) | payer MEDICARE, MEDICAID, SELFPAY ==
[2021-03-31 21:57] LABS: HCT 49.3 % (40.0-50.0); HGB 15.9 g/dL (13.5-17.5); MCH 29.7 pg (27.0-33.0); MCHC 32.3 % (32.0-36.0); MCV 92.1 fL (80-95); MPV 10.5 fL (8.0-11.0); Platelet Count 210 10^3/uL (130-400); RBC 5.35 10^6/uL (4.36-5.78); RDW 12.7 % (11.8-14.1); RDW-SD 43.3 fL; WBC 9.65 10^3/uL (4.4-10.8)
[2021-03-31 22:11] LABS: ALT 51 U/L (16-63); AST 20 U/L (15-37); Albumin 3.7 g/dL (3.4-5.0); Alkaline Phosphatase 178 U/L (46-116); Anion Gap 11.8 mmol/L (3-11); BUN 17 mg/dL (7-18); Bilirubin, Total 0.3 mg/dL (0.2-1.0); CO2 24.2 mmol/L (21.0-32.0); CREATININE 0.9 mg/dL (0.70-1.30); Calcium 10.5 mg/dL (8.5-10.1); Chloride 106 mmol/L (98-107); Glucose 127 mg/dL (74-106); Potassium 4.3 mmol/L (3.5-5.1); Sodium 142 mmol/L (136-145); Total Protein 6.8 g/dL (6.4-8.2)
== END 2021-03-31 16:06 | disposition home or self-care (01) ==
LOC: NCHCN 16:05
PROVIDERS: PCP Internal Medicine; Visit Provider Internal Medicine
DX: E11.9 Type 2 diabetes mellitus without complications (principal); E83.52 Hypercalcemia
CPT/HCPCS: 80053; 85027

== ENCOUNTER 2021-06-10 15:41 | Outpatient (REF) | payer MEDICARE, MEDICAID, SELFPAY ==
[2021-06-11 16:19] LABS: COVID-19 RT-PCR UVMMC Result Positive (Negative)
== END 2021-06-10 15:42 | disposition home or self-care (01) ==
LOC: NCHCN 15:41
PROVIDERS: PCP Internal Medicine; Visit Provider Internal Medicine
DX: Z20.822 Contact with and (suspected) exposure to COVID-19 (principal); J06.9 Acute upper respiratory infection, unspecified
CPT/HCPCS: U0003; U0005

== ENCOUNTER 2021-09-28 12:35 | Outpatient (REF) | payer MEDICARE, MEDICAID, SELFPAY ==
[2021-09-28 19:26] LABS: Anion Gap 10.7 mmol/L (3-11); BUN 18 mg/dL (7-18); CO2 23.3 mmol/L (21.0-32.0); CREATININE 0.9 mg/dL (0.70-1.30); Calcium 10.8 mg/dL (8.5-10.1); Chloride 104 mmol/L (98-107); Glucose 115 mg/dL (74-106); Potassium 4.4 mmol/L (3.5-5.1); Sodium 138 mmol/L (136-145)
== END 2021-09-28 12:36 | disposition home or self-care (01) ==
LOC: NCHCN 12:35
PROVIDERS: PCP Internal Medicine; Visit Provider Internal Medicine
DX: E11.9 Type 2 diabetes mellitus without complications (principal); E83.52 Hypercalcemia; E66.9 Obesity, unspecified
CPT/HCPCS: 80048

== ENCOUNTER 2022-01-12 11:42 | Outpatient (CLI) | payer MEDICARE, MEDICAID, SELFPAY ==
[2022-01-12 12:41] LABS: D-Dimer 653 ng/mlFEU (<500)
== END 2022-01-12 11:43 | disposition home or self-care (01) ==
LOC: LBO 11:43
PROVIDERS: PCP Internal Medicine; Visit Provider Nurse Practitioner Family
DX: R22.42 Localized swelling, mass and lump, left lower limb (principal)
CPT/HCPCS: 36415; 85379; 93971

== ENCOUNTER → 2022-01-12 13:50 | Outpatient (CLI) | payer MEDICARE, MEDICAID, SELFPAY ==
--- NOTE | 2022-01-12 | DI.US_ITS ---
Exam(s) US LOWER EXTREMITY VENOUS LT EXAM: US LOWER EXTREMITY VENOUS LT CLINICAL HISTORY: LOCALIZED SWELLING LOWER LEG LT, R22.42 TECHNIQUE: Left lower extremity venous ultrasound performed using grayscale, color-flow, and spectra l Doppler analysis. COMPARISON: No exams were available for comparison FINDINGS: The left common femoral, femoral and popliteal veins demonstrate normal compressibility, augmentation , and color Doppler. The posterior tibial veins are patent. The saphenofemoral junction is unremarka ble. There is no evidence of a Ley cyst. There is edema in the soft tissues around the ankles. IMPRESSION: No left lower extremity DVT. DATA REPOSITORY:
== END ==
PROVIDERS: PCP Internal Medicine; Visit Provider Nurse Practitioner Family
DX: R22.42 Localized swelling, mass and lump, left lower limb (principal); R23.3 Spontaneous ecchymoses
CPT/HCPCS: 93971

== ENCOUNTER 2022-03-30 15:39 | Outpatient (REF) | payer MEDICARE, MEDICAID, SELFPAY ==
[2022-03-30 19:34] LABS: BUN 13 mg/dL (7-18); CREATININE 0.8 mg/dL (0.70-1.30); Calcium 10.5 mg/dL (8.5-10.1); Chloride 105 mmol/L (98-107); Estimated GFR 100.06 (mL/min/1.73m2); Glucose 140 mg/dL (74-106); Potassium 4.4 mmol/L (3.5-5.1); Sodium 140 mmol/L (136-145)
== END 2022-03-30 15:40 | disposition home or self-care (01) ==
LOC: NCHCN 15:39
PROVIDERS: PCP Internal Medicine; Visit Provider Internal Medicine
DX: E11.9 Type 2 diabetes mellitus without complications (principal); I10 Essential (primary) hypertension
CPT/HCPCS: 80048

== ENCOUNTER 2022-11-02 17:52 | Outpatient (REF) | payer MEDICARE, MEDICAID, SELFPAY ==
[2022-11-02 21:20] LABS: ALT 53 U/L (16-63); AST 24 U/L (15-37); Albumin 3.6 g/dL (3.4-5.0); Alkaline Phosphatase 169 U/L (46-116); Anion Gap 10.6 mmol/L (3-11); BUN 17 mg/dL (7-18); Bilirubin, Total 0.3 mg/dL (0.2-1.0); CO2 23.4 mmol/L (21.0-32.0); CREATININE 0.9 mg/dL (0.70-1.30); Calcium 10.4 mg/dL (8.5-10.1); Chloride 107 mmol/L (98-107); Estimated GFR 95.97 (mL/min/1.73m2); Glucose 135 mg/dL (74-106); Potassium 4.5 mmol/L (3.5-5.1); Sodium 141 mmol/L (136-145)
== END 2022-11-02 17:53 | disposition home or self-care (01) ==
LOC: NCHCN 17:52
PROVIDERS: PCP Internal Medicine; Visit Provider Internal Medicine
DX: E11.9 Type 2 diabetes mellitus without complications (principal); E21.3 Hyperparathyroidism, unspecified; I10 Essential (primary) hypertension; I25.10 Atherosclerotic heart disease of native coronary artery without angina pectoris
CPT/HCPCS: 80053

== ENCOUNTER 2023-05-31 10:02 | Outpatient (REF) | payer MEDICARE, MEDICAID, SELFPAY ==
--- NOTE | 2023-05-31 13:36 | SKI_PTH ---
PATIENT: Brennon Gomez LOC: [facility]#:[id number] AGE/SX: 62/M ROOM: RE05/31/[address]: Oh Sher : 1960 BED: DIS: 05/31/2023 SPEC #: [id number] RECD: 06/01/23 12:26 STATUS: ANDER AJ #: [id number] ANEESH: 05/31/23 13:[address]: Oh Sher DEPT: Surgical Specimen RECD BY: Alta Martinez Tissues: 1 - SKIN BIOPSY(SHAVE/PUNCH) Procedures: SKIN LEVEL 4 SPECIAL STAIN 1 Comments: [id number]
== END 2023-05-31 10:03 | disposition home or self-care (01) ==
LOC: NCHCN 10:02
PROVIDERS: PCP Internal Medicine; Visit Provider Internal Medicine
DX: L40.0 Psoriasis vulgaris (principal)
CPT/HCPCS: 88305; 88312

== ENCOUNTER 2023-09-01 15:11 | Outpatient (REF) | payer MEDICARE, MEDICAID, SELFPAY ==
[2023-09-01 21:54] LABS: Anion Gap 11.6 mmol/L (3-11); BUN 14 mg/dL (7-18); CO2 23.4 mmol/L (21.0-32.0); CREATININE 0.8 mg/dL (0.70-1.30); Calcium 10.9 mg/dL (8.5-10.1); Chloride 103 mmol/L (98-107); Estimated GFR 98.83 (mL/min/1.73m2); Glucose 235 mg/dL (74-106); Potassium 4.6 mmol/L (3.5-5.1); Sodium 138 mmol/L (136-145)
[2023-09-01 22:07] LABS: Hemoglobin A1C 9.3 % (<5.7)
[2023-09-02 18:20] LABS: PSA, Screening 0.2 ng/mL (<=4.5)
== END 2023-09-01 15:12 | disposition home or self-care (01) ==
LOC: NCHCN 15:11
PROVIDERS: PCP Family Medicine; Visit Provider Family Medicine
DX: E11.9 Type 2 diabetes mellitus without complications (principal); I10 Essential (primary) hypertension; Z12.5 Encounter for screening for malignant neoplasm of prostate
CPT/HCPCS: 80048; 84153; 83036

== ENCOUNTER 2024-03-22 16:22 | Outpatient (REF) | payer MEDICARE, MEDICAID, SELFPAY ==
[2024-03-22 15:49] LABS: COMMENT (LAB VIEW ONLY) 41.38 mg/dL; Microalb ug/mg Crea 5.6 ug/mg Cr
== END 2024-03-22 16:23 | disposition home or self-care (01) ==
LOC: NCHCN 16:22
PROVIDERS: PCP Family Medicine; Visit Provider Family Medicine
DX: E11.9 Type 2 diabetes mellitus without complications (principal)
CPT/HCPCS: 82043; 82570

== ENCOUNTER 2024-06-26 16:58 | Outpatient (REF) | payer MEDICARE, MEDICAID, SELFPAY ==
[2024-06-26 21:25] LABS: ALT 46 U/L (16-63); AST 26 U/L (15-37); Albumin 3.1 g/dL (3.4-5.0); Alkaline Phosphatase 159 U/L (46-116); Anion Gap 7.9 mmol/L (3-11); BUN 17 mg/dL (7-18); CO2 26.1 mmol/L (21.0-32.0); CREATININE 0.9 mg/dL (0.70-1.30); Calcium 9.9 mg/dL (8.5-10.1); Chloride 107 mmol/L (98-107); Creatine Kinase 59 U/L (39-308); Estimated GFR 94.78 (mL/min/1.73m2); Glucose 158 mg/dL (74-106); Magnesium 1.8 mg/dL (1.8-2.4); Potassium 4.3 mmol/L (3.5-5.1); Sodium 141 mmol/L (136-145); Total Protein 6.4 g/dL (6.4-8.2)
[2024-06-26 21:39] LABS: Calculated LDL 36 mg/dL (<100); Cholesterol 126 mg/dL (<200); HDL Cholesterol 47 mg/dL (40-60); Triglyceride 216 mg/dL (<150)
[2024-06-27 19:48] LABS: Hepatitis C Ab w Rflx HCV PCR Negative (Negative)
[2024-06-27 19:51] LABS: HIV-1/2 Ag & Ab Screen Negative (Negative)
== END 2024-06-26 16:59 | disposition home or self-care (01) ==
LOC: NCHCN 16:58
PROVIDERS: PCP Family Medicine; Visit Provider Family Medicine
DX: E11.9 Type 2 diabetes mellitus without complications (principal)
CPT/HCPCS: 80053; 80061; 82550; 86803; 87389; 83735

== ENCOUNTER 2024-07-04 02:06 | Outpatient (CLI) | payer MEDICARE, MEDICAID, SELFPAY ==
--- NOTE | 2024-07-04 11:00 | DI.US_ITS ---
Exam(s) US ABDOMEN LIMITED EXAM: US ABDOMEN LIMITED CLINICAL HISTORY: Alkaline phosphatase above reference range, R74.8 TECHNIQUE: Ultrasound abdomen performed using standard protocol. COMPARISON: No exams were available for comparison FINDINGS: LIVER: 17 cm in length. Increasedechogenicity, consistent with moderate hepatic steatosis. No focal liver lesions are seen. GALLBLADDER: No evidence of cholelithiasis. No evidence of wall thickening. No pericholecystic fluid identified. VERAS'S SIGN: Negative. BILIARY SYSTEM: No intrahepatic or extrahepatic biliary ductal dilation. RIGHT KIDNEY: Normal size. No evidence of renal calculi. No evidence of hydronephrosis. No suspicious renal mass. No cyst identified. PANCREAS: Normal where visualized. ABDOMINAL AORTA AND IVC: Visualized portions normal caliber. ASCITES: None seen. IMPRESSION: Moderate hepatic steatosis.. DATA REPOSITORY:
== END 2024-07-04 02:26 ==
LOC: DI 02:06
PROVIDERS: PCP Family Medicine; Visit Provider Family Medicine
DX: R74.8 Abnormal levels of other serum enzymes (principal); K76.0 Fatty (change of) liver, not elsewhere classified
CPT/HCPCS: 76705

== ENCOUNTER 2024-09-25 15:21 | Outpatient (REF) | payer MEDICARE, MEDICAID, SELFPAY ==
[2024-09-25 21:46] LABS: Anion Gap 13.5 mmol/L (3-11); BUN 15 mg/dL (7-18); CO2 22.5 mmol/L (21.0-32.0); CREATININE 0.8 mg/dL (0.70-1.30); Calcium 11.1 mg/dL (8.5-10.1); Chloride 103 mmol/L (98-107); Estimated GFR 98.21 (mL/min/1.73m2); Glucose 133 mg/dL (74-106); Potassium 4.5 mmol/L (3.5-5.1); Sodium 139 mmol/L (136-145)
[2024-09-26 18:28] LABS: PSA, Screening 0.2 ng/mL (<=4.5)
== END 2024-09-25 15:22 | disposition home or self-care (01) ==
LOC: NCHCN 15:21
PROVIDERS: PCP Family Medicine; Visit Provider Family Medicine
DX: Z12.5 Encounter for screening for malignant neoplasm of prostate (principal)
CPT/HCPCS: 80048; 84153

== ENCOUNTER 2024-12-25 22:10 | Outpatient (REF) | payer MEDICARE, MEDICAID, SELFPAY ==
[2024-12-25 22:37] LABS: ALT 51 U/L (16-63); AST 22 U/L (15-37); Albumin 3.6 g/dL (3.4-5.0); Alkaline Phosphatase 175 U/L (46-116); Anion Gap 10.2 mmol/L (3-11); BUN 14 mg/dL (7-18); Bilirubin, Total 0.3 mg/dL (0.2-1.0); CO2 24.8 mmol/L (21.0-32.0); Calcium 10.6 mg/dL (8.5-10.1); Chloride 104 mmol/L (98-107); Estimated GFR 102.25 (mL/min/1.73m2); Glucose 114 mg/dL (74-106); Potassium 4.2 mmol/L (3.5-5.1); Sodium 139 mmol/L (136-145); Total Protein 6.5 g/dL (6.4-8.2)
== END 2024-12-25 22:11 | disposition home or self-care (01) ==
LOC: NCHCN 22:10
PROVIDERS: PCP Family Medicine; Visit Provider Family Medicine
DX: E83.52 Hypercalcemia (principal)
CPT/HCPCS: 80053; 83970

== ENCOUNTER 2025-03-28 17:58 | Outpatient (REF) | payer MEDICARE, MEDICAID, SELFPAY ==
[2025-03-28 20:58] LABS: Abs Immature Grans 0.09 10^3/uL (0.0-0.06); HCT 48.4 % (40.0-50.0); HGB 16.0 g/dL (13.5-17.5); Immature Grans % 0.8 %; MCH 30.2 pg (27.0-33.0); MCHC 33.1 % (32.0-36.0); MCV 91 fL (80-95); MPV 10.2 fL (8.0-11.0); Platelet Count 202 10^3/uL (130-400); RBC 5.30 10^6/uL (4.36-5.78); RDW 12.8 % (11.8-14.1); RDW-SD 43.3 fL; WBC 11.49 10^3/uL (4.4-10.8)
[2025-03-28 21:21] LABS: Hemoglobin A1C 7.4 % (<5.7)
[2025-03-28 21:38] LABS: ALT 38 U/L (16-63); AST 17 U/L (15-37); Albumin 3.6 g/dL (3.4-5.0); Alkaline Phosphatase 191 U/L (46-116); Anion Gap 10.3 mmol/L (3-11); BUN 15 mg/dL (7-18); Bilirubin, Total 0.3 mg/dL (0.2-1.0); CO2 26.7 mmol/L (21.0-32.0); Calcium 10.6 mg/dL (8.5-10.1); Chloride 103 mmol/L (98-107); Estimated GFR 102.25 (mL/min/1.73m2); Glucose 122 mg/dL (74-106); Potassium 4.5 mmol/L (3.5-5.1); Sodium 140 mmol/L (136-145); Total Protein 6.6 g/dL (6.4-8.2); Vitamin D 25 Total 24 ng/mL (30-100)
[2025-03-28 22:05] LABS: GGT 36 U/L (15-85)
== END 2025-03-28 17:59 | disposition home or self-care (01) ==
LOC: NCHCN 17:58
PROVIDERS: PCP Family Medicine; Visit Provider Family Medicine
DX: E21.3 Hyperparathyroidism, unspecified (principal); E11.9 Type 2 diabetes mellitus without complications; R74.8 Abnormal levels of other serum enzymes
CPT/HCPCS: 80053; 82306; 82977; 83036; 83970; 85025